=== PATIENT | male | born 1960 | race Caucasian/White ===

== ENCOUNTER → 2019-11-09 | Outpatient (CLI) | payer BC ==
[~2019-11-09] MED LIST: CATHETER FLUSH 10 ML SYR IV PRN; HOLD METFORMIN - RECEIVED CONTRAST 20 ML VIAL IV SCH; IOHEXOL 350 MG/ML 100 ML (OMNIPAQUE 350) VIAL IV ONE; NS 100 ML (IVPB) BAG IV ONE
--- NOTE | 2019-11-09 09:53 | Diagnostic Imaging Report ---
PROCEDURE: CT abdomen with contrast only. TECHNIQUE: Multiple contiguous axial images were obtained through the abdomen after the administration of intravenous contrast. Auto Exposure Controls were utilized during the CT exam to meet ALARA standards for radiation dose reduction. INDICATION: Fatty liver. Elevated liver enzymes. History of Lap-Band placement. COMPARISON: None. FINDINGS: Lung bases are clear. Nodular contour of the liver consistent with chronic liver disease. No focal hepatic mass or fluid collection in the liver. The gallbladder, pancreas, spleen and adrenals are negative. Cortical thinning of the upper pole of the right kidney where there is also a simple appearing cyst measuring up to 2.4 cm. No hydronephrosis. No free intraperitoneal air/fluid, lymphadenopathy or evidence of bowel obstruction in the visualized abdomen. Lap-Band device appears intact and in the expected location. IMPRESSION: 1. No acute CT findings in the abdomen. 2. Cirrhotic morphology of the liver. 3. Lap-Band device appears to be intact and in the expected location. Dictated by: Dictated on workstation # [id number]
== END ==
LOC: RAD FS 09:05
PROVIDERS: ATTEND Nurse Practitioner
DX: K74.60 Unspecified cirrhosis of liver (principal); K76.0 Fatty (change of) liver, not elsewhere classified; Z98.84 Bariatric surgery status
CPT/HCPCS: 74160

== ENCOUNTER 2021-08-29 18:52 | Emergency (ER) | payer BC ==
[~2021-08-29] VITALS: Ht 162.5 cm; Wt 122.9 kg
[2021-08-29 18:59] VITALS: BP 124/77
--- NOTE | 2021-08-29 19:02 | ED Integumentary General ---
General Stated Complaint: L ARM LAC,FACIAL LAC History of Present Illness Date Seen by Provider: Aug 29, 2021 Time Seen by Provider: 18:57 Initial Comments 60-year-old male presents following a fall. Patient stepped off a curb wrong fell and hit the asphalt. Patient presents with a small abrasion to the left part of the bridge of his nose, he has an abrasion over his left knee. He has 2 skin tears over his left arm right above the elbow. He did not lose consciousness. He has full range of motion everywhere. Family was concerned because he is in liver failure and has extremely high elevated blood clotting times due to the liver failure. He is currently on the transplant list at . Patient has no other complaints. Allergies and Home Medications Allergies Coded Allergies: No Known Drug Allergies (Unverified , 11/09/19) Patient Home Medication List Home Medication List Reviewed: Yes Review of Systems Review of Systems Constitutional: no symptoms reported EENTM: no symptoms reported Respiratory: no symptoms reported Cardiovascular: no symptoms reported Gastrointestinal: no symptoms reported Genitourinary: no symptoms reported Musculoskeletal: no symptoms reported Skin: see HPI Psychiatric/Neurological: No Symptoms Reported Endocrine: See HPI Physical Exam Vital Signs Capillary Refill : General Appearance: WD/WN, no apparent distress HEENT: other (Small abrasion) Neck: full range of motion, supple Cardiovascular: normal peripheral pulses, regular rate, rhythm Respiratory: lungs clear, normal breath sounds Gastrointestinal: soft Extremities: normal range of motion Neurologic/Psychiatric: alert, normal mood/affect, oriented x 3 Skin Problem Location: other Skin Problem Character: other (2 nonsuturable skin tears on his left arm, a moderate sized abrasion over his left knee. Patient does have some mild jaundice that is consistent with his known liver failure) Progress/Results/Core Measures Progress Progress Note : Progress Note Patient with some abrasions into nonsuturable skin tears. Patient did not feel he needed any imaging as the wounds are superficial knees otherwise has no complaints. Did discuss wound care with patient and family. Recommended keep clean with warm soapy water, thin layer of Vaseline after 24 hours. Not on stick sterile dressings. He should follow-up with us primary care provider in about a week for recheck of the skin tears to ensure he does not need to see wound care. Patient stable discharged home Departure Impression Primary Impression: Abrasion of knee, left Qualified Codes: S80.212A - Abrasion, left knee, initial encounter Additional Impressions: Skin tear of left upper arm without complication Qualified Codes: S41.112A - Laceration without foreign body of left upper arm, initial encounter Abrasion of nose with infection Qualified Codes: S00.31XA - Abrasion of nose, initial encounter; L08.9 - Local infection of the skin and subcutaneous tissue, unspecified Disposition: 01 HOME, SELF-CARE Condition: Stable Departure-Patient Inst. Referrals: BRITT PEREZ MD (PCP/Family) Primary Care Physician Patient Instructions: SKIN AVULSION, Skin Abrasions (DC), Taking Care of Cuts, Scrapes, and Puncture Wounds, Wound Care ED Add. Discharge Instructions: Keep wounds clean with warm soapy water Keep skin avulsions covered with nonstick sterile dressing You may use a thin layer of Vaseline over your wounds after approximately 24 hours Follow-up with your primary care provider in the middle and next week to recheck your wounds on your left arm You may use topical Dermoplast or similar lidocaine spray for pain control as needed DEIDRE MCINTYRE DO Aug 29, 2021 19:02
== END 2021-08-29 19:35 | disposition home or self-care (01) ==
LOC: EDUNIT# 18:52 → ER FS 18:54
DX: S41.112A Laceration without foreign body of left upper arm, initial encounter (principal); S80.212A Abrasion, left knee, initial encounter; S00.31XA Abrasion of nose, initial encounter; L08.9 Local infection of the skin and subcutaneous tissue, unspecified; W17.89XA Other fall from one level to another, initial encounter; Y92.480 Sidewalk as the place of occurrence of the external cause
CPT/HCPCS: 99282; A6223